=== PATIENT | male | born 1980 | race Caucasian/White ===

== ENCOUNTER 2020-05-31 07:58 | Day surgery (SDC) | payer OTHER ==
[2020-05-30 14:04] VITALS: BMI 25.8
[2020-05-31] MEDS ORDERED: Bupivacaine PF 0.5% 30 ML VIAL ONE (09:59)
[2020-05-31] MEDS ORDERED: Midazolam HCl 2 mg/2 ml Vial ONE (10:21)
[2020-05-31] MEDS ORDERED: Fentanyl 100 MCG/2 ML VIAL ONE ×2 (10:28→11:52)
[2020-05-31] MEDS ORDERED: HYDROmorphone 0.5 MG/0.5 ML SYRINGE ONE (10:28)
--- NOTE | 2020-05-31 11:53 | OP ---
DATE OF PROCEDURE: 05/31/2020 POSTOPERATIVE DIAGNOSIS: Left varicocele. POSTOPERATIVE DIAGNOSIS: Left varicocele. PROCEDURES PERFORMED: Left inguinal varicocelectomy. ANESTHESIA: General. COMPLICATIONS: None. ESTIMATED BLOOD LOSS: Minimal. SPECIMEN: Left varicocele. DESCRIPTION OF PROCEDURE: After informed consent, the patient was taken to the operating room, transferred to the table under his own power. Anesthesia was established. A time-out was performed, showing correct patient, site, and procedure. Preoperative antibiotics were administered. He was prepped and draped in the supine position. I began by making a small incision over the left groin. This was carried down through Virgen's with electrocautery. The spinal cord was identified and dissected free until I was able to bring it up into the operative field. The varicose veins were isolated and tied off with silk suture. Care was taken to avoid injury to the vas deferens or the spermatic artery. The traumatic cord was then placed back into the inguinal incision and the testicle confirmed to be in good position with normal lie in the scrotum. The operative field was irrigated and then Virgen's was closed with Vicryl suture before closing skin in a running subcuticular fashion with Monocryl and dressing with Dermabond. He was awoken from anesthesia, transferred back to his hospital bed and taken to PACU in stable condition, where he was discharged home upon recovery. Job ID: [id number]
[2020-05-31] MEDS ORDERED: PROPOFOL 200 MG/20 ML VIAL ONE (12:03)
[2020-05-31] MEDS ORDERED: Lidocaine 1% PF 5 ML VIAL ONE (12:03)
[2020-05-31] MEDS ORDERED: Ondansetron PF 4 MG/2 ML Vial ONE (12:03)
[2020-05-31] MEDS ORDERED: Dexamethasone 20 MG/5 ML VIAL ONE (12:03)
[2020-05-31] MEDS ORDERED: Ketorolac Tromethamine 30 MG/ML VIAL ONE (12:03)
== END 2020-05-31 13:20 | disposition home or self-care (01) ==
LOC: SDC 07:58
PROVIDERS: ATTEND Urology
PROC: 0VBG0ZZ Excision of Left Spermatic Cord, Open Approach (ICD-10-PCS; principal; 2020-05-31)
DX: I86.1 Scrotal varices (principal); Z79.811 Long term (current) use of aromatase inhibitors; Z79.899 Other long term (current) drug therapy; Z88.8 Allergy status to other drugs, medicaments and biological substances
CPT/HCPCS: 88304; J0690; J1100; J1170; J1885; J2250; J2405; J2704; J3010; S0020